=== PATIENT | male | born 1965 | race African-American/Black ===

== ENCOUNTER 2018-06-02 14:51 | Inpatient (IN) ==
--- NOTE | 2018-06-02 15:40 | ED ---
HPI General Chief complaint: Weakness Stated complaint: Medical Time Seen by Provider: 06/02/18 15:21 History of Present Illness HPI narrative: 53-year-old male with history of diabetes, hypertension, hyperlipidemia, colon cancer, and prostate cancer presents to the emergency department complaining of weakness and shortness of breath times 2 weeks. Patient denies hematuria or hemoptysis or chest pain reports shortness of breath. Also reports some constipation and weight loss. He denies taking aspirin or blood thinners or NSAIDs. States that his stool has been dark chronically secondary to vitamin D use. He is in remission for both colon cancer and prostate cancer. He completed 6 months of chemo for colon cancer June 2015 and 9 weeks radiation for prostate cancer in 2017. He also had colon surgery to remove part of his colon. He was seen [facility] the [facility] earlier today and blood work showed a hemoglobin of 6.6. Related Data Home Medications Medication Instructions Recorded Confirmed amlodipine 10 mg PO DAILY 06/02/18 06/02/18 atorvastatin 40 mg PO DAILY 06/02/18 06/02/18 cholecalciferol (vitamin D3) 06/02/18 insulin glargine 06/02/18 lisinopril 10 mg PO DAILY 06/02/18 06/02/18 metformin 06/02/18 pantoprazole 06/02/18 tamsulosin 0.4 mg PO DAILY 06/02/18 06/02/18 Allergies Allergy/AdvReac Type Severity Reaction Status Date / Time No Known Allergies Allergy Verified 06/02/18 15:18 Review of Systems ROS: all other systems reviewed are negative [facility] Social History Social History Substance History: No History of Abuse Second Hand Smoke Exposure: No Smoking Status: Never smoker Tobacco Type: Cigarettes How Often Do You Have a Drink Containing Alcohol: 2 to 3 times a week Recent Travel in [facility] within the Last 8 Weeks: No Recent Out of Country Travel within the Last 8 Weeks: No Immunization History Tetanus Immunization: <5 Years Exam Narrative Exam Narrative: GENERAL: No acute distress. SKIN: Focused skin assessment warm/dry. Pale. HEAD: Atraumatic. Normocephalic. EYES: Pupils equal and round. No scleral icterus. No injection or drainage. ENT: No nasal bleeding or discharge. Mucous membranes pink and moist. NECK: Trachea midline. No JVD. CARDIOVASCULAR: Regular rate and rhythm. No murmur appreciated. RESPIRATORY: No accessory muscle use. Clear to auscultation. Breath sounds equal bilaterally. GASTROINTESTINAL: Abdomen soft, non-tender, nondistended. Hepatic and splenic margins not palpable. Rectal: Brown stool, guaiac negative. MUSCULOSKELETAL: No obvious deformities. No clubbing. No cyanosis. No edema. NEUROLOGICAL: Awake and alert. No obvious cranial nerve deficits. Motor grossly within normal limits. Normal speech. PSYCHIATRIC: Appropriate mood and affect; insight and judgment normal. Course Initial Documented Vital Signs Temperature 99.2 F 06/02/18 15:15 Pulse Rate 98 H 06/02/18 15:15 Respiratory Rate 20 06/02/18 15:15 Blood Pressure 101/73 06/02/18 15:15 Pulse Oximetry 100 06/02/18 15:15 Last Documented Vital Signs Temperature 98.7 F 06/02/18 15:23 Pulse Rate 91 H 06/02/18 15:23 Respiratory Rate 18 06/02/18 15:23 Blood Pressure 123/69 06/02/18 15:23 Pulse Oximetry 100 06/02/18 15:23 Medical Decision Making [facility] Narrative Medical decision making narrative: Patient presents to the emergency department complaining of shortness of breath and weakness for 2 weeks. Was found to be anemic at the [facility] earlier today. Patient placed on classroom monitor, continuous pulse ox, and IV access obtained. Chest x-ray, EKG, labs ordered. 1608: CXR shows multiple nodules suggesting metastatic disease. 1638: Hgb 6.2, written to transfuse 2 units PRBCs, consent obtained. Call center called for hospitalist admission. GLc and alk phos increased. 1645: Patient admitted to hospitalist. Medical Screen Exam Complete: Yes Emergency Medical Condition: Yes Lab Data Result diagrams: 06/02/18 15:45 06/02/18 15:45 Lab Results 06/02/18 06/02/18 06/02/18 Range/Units 15:45 15:45 15:45 WBC 8.7 (4.0-11.0) th/mm3 RBC 2.59 L (4.50-5.90) mil/mm3 Hgb 6.2 L* (13.0-17.0) gm/dL Hct 19.5 L* (39.0-51.0) % MCV 75.3 L (80.0-100.0) fL MCH 23.9 L (27.0-34.0) pg MCHC 31.8 L (32.0-36.0) % RDW 17.8 H (11.6-17.2) % Plt Count 334 (150-450) th/mm3 MPV 7.4 (7.0-11.0) fL Prelim Diff (Auto) Slide review pending Neut % (Auto) 82.6 H (16.0-70.0) % Lymph % (Auto) 8.3 L (9.0-44.0) % [place] % (Auto) 8.1 H (0.0-8.0) % Eos % (Auto) 0.7 (0.0-4.0) % Baso % (Auto) 0.3 (0.0-2.0) % Neut # (Auto) 7.2 (1.8-7.7) th/mm3 Lymph # (Auto) 0.7 L (1.0-4.8) th/mm3 [place] # (Auto) 0.7 (0.0-0.9) th/mm3 Eos # (Auto) 0.1 (0.0-0.4) th/mm3 Baso # (Auto) 0.0 (0.0-0.2) th/mm3 WBC Differential . Diff Scan Auto diff confirmed Differential Comment . Platelet Estimate Normal (Normal) Platelet Morphology Normal (Normal) Tear Drop Cells 1+ H (None) Ovalocytes 1+ H (None) PT 11.2 (9.8-11.6) sec INR 1.1 Ratio APTT 25.9 (23.4-31.7) sec Sodium 135 L (136-145) meq/L Potassium 3.8 (3.5-5.1) meq/L Chloride 103 (98-107) meq/L Carbon Dioxide 23.5 (21.0-32.0) meq/L Anion Gap 9 (5-15) meq/L BUN 15 (7-18) mg/dL Creatinine 0.86 (0.60-1.30) mg/dL Estimated GFR Greater than 89 (>89) mL/min Random Glucose 181 H (74-106) mg/dL Calcium 8.9 (8.5-10.1) mg/dL Magnesium 2.1 (1.5-2.5) mg/dL Total Bilirubin 0.2 (0.2-1.0) mg/dL AST 21 (15-37) U/L ALT 19 (12-78) U/L Alkaline Phosphatase 177 H (45-117) U/L Troponin I Less than 0.02 L (0.02-0.05) ng/mL Total Protein 7.3 (6.4-8.2) g/dL Albumin 2.6 L (3.4-5.0) g/dL Blood Type Blood Type Recheck Antibody Screen 06/02/18 Range/Units 15:45 WBC (4.0-11.0) th/mm3 RBC (4.50-5.90) mil/mm3 Hgb (13.0-17.0) gm/dL Hct (39.0-51.0) % MCV (80.0-100.0) fL MCH (27.0-34.0) pg MCHC (32.0-36.0) % RDW (11.6-17.2) % Plt Count (150-450) th/mm3 MPV (7.0-11.0) fL Prelim Diff (Auto) Neut % (Auto) (16.0-70.0) % Lymph % (Auto) (9.0-44.0) % [place] % (Auto) (0.0-8.0) % Eos % (Auto) (0.0-4.0) % Baso % (Auto) (0.0-2.0) % Neut # (Auto) (1.8-7.7) th/mm3 Lymph # (Auto) (1.0-4.8) th/mm3 [place] # (Auto) (0.0-0.9) th/mm3 Eos # (Auto) (0.0-0.4) th/mm3 Baso # (Auto) (0.0-0.2) th/mm3 WBC Differential Diff Scan Differential Comment Platelet Estimate (Normal) Platelet Morphology (Normal) Tear Drop Cells (None) Ovalocytes (None) PT (9.8-11.6) sec INR Ratio APTT (23.4-31.7) sec Sodium (136-145) meq/L Potassium (3.5-5.1) meq/L Chloride (98-107) meq/L Carbon Dioxide (21.0-32.0) meq/L Anion Gap (5-15) meq/L BUN (7-18) mg/dL Creatinine (0.60-1.30) mg/dL Estimated GFR (>89) mL/min Random Glucose (74-106) mg/dL Calcium (8.5-10.1) mg/dL Magnesium (1.5-2.5) mg/dL Total Bilirubin (0.2-1.0) mg/dL AST (15-37) U/L ALT (12-78) U/L Alkaline Phosphatase (45-117) U/L Troponin I (0.02-0.05) ng/mL Total Protein (6.4-8.2) g/dL Albumin (3.4-5.0) g/dL Blood Type A Positive Blood Type Recheck Required Antibody Screen Negative Imaging Data Radiologist's impression: Chest X-Ray 06/02/18 15:35 CONCLUSION: Multiple pulmonary nodules suggesting widespread metastatic disease. ECG Data Attestation: I personally reviewed and interpreted this ECG as follows: (Sinus rhythm, rate 87, normal axis, normal intervals, QTC 436) Discharge Plan Discharge Disposition Patient Disposition: 30 Still Patient Discharge Condition Condition: Stable Discharge Details Diagnosis: Anemia Physicians Team ED Provider: Ritika Pulido Primary Care Provider: [facility]ician 's Attending Provider: Sara Meyer Status ED Status: Admitted Patient
[2018-06-02] MEDS ORDERED: Sodium Chlor 0.9% Inj 250 ML IV.SIG SCH (16:00)
--- NOTE | 2018-06-02 16:00 | XR ---
EXAM DATE: 06/02/2018 3:58 PM EST AGE/SEX: 53 years / Male INDICATIONS: Dyspnea. Short of breath with dizziness for two weeks. CLINICAL DATA: This is the patient's initial encounter. Patient reports that signs and symptoms have been present for 1 day and indicates a pain score of 2/10. MEDICAL/SURGICAL HISTORY: . Carcinoma, colon. Colon perforation. Internal bleed. . Colon. COMPARISON: No prior exams available for comparison. FINDINGS: Single view of the thorax demonstrates numerous pulmonary nodules suggesting widespread metastatic di sease. CT of the thorax abdomen and pelvis with contrast would be warranted for further assessment. T he heart is normal in size. The osseous structures are intact. CONCLUSION: Multiple pulmonary nodules suggesting widespread metastatic disease. Electronically signed by: Willy Mariano MD 06/02/2018 3:59 PM EST
[2018-06-02 16:19] LABS: Baso % (Auto) 0.3 % (0.0-2.0); Eos # (Auto) 0.1 th/mm3 (0.0-0.4); Eos % (Auto) 0.7 % (0.0-4.0); Lymph # (Auto) 0.7 th/mm3 (1.0-4.8); Lymph % (Auto) 8.3 % (9.0-44.0); Mean Corpuscular HGB Conc 31.8 % (32.0-36.0); Mean Corpuscular Hemoglobin 23.9 pg (27.0-34.0); Mean Corpuscular Volume 75.3 fL (80.0-100.0); Mean Platelet Volume 7.4 fL (7.0-11.0); Mono # (Auto) 0.7 th/mm3 (0.0-0.9); Mono % (Auto) 8.1 % (0.0-8.0); Neut # (Auto) 7.2 th/mm3 (1.8-7.7); Neut % (Auto) 82.6 % (16.0-70.0); Platelet Count 334 th/mm3 (150-450); Red Blood Count 2.59 mil/mm3 (4.50-5.90); Red Cell Distribution Width 17.8 % (11.6-17.2); White Blood Count 8.7 th/mm3 (4.0-11.0)
[2018-06-02 16:23] LABS: Hemoglobin 6.2 gm/dL (13.0-17.0)
[2018-06-02 16:24] LABS: Hematocrit 19.5 % (39.0-51.0)
[2018-06-02 16:27] LABS: Activated Partial Thrombo Time 25.9 sec (23.4-31.7); INR 1.1 Ratio; Prothrombin Time 11.2 sec (9.8-11.6)
[2018-06-02 16:35] LABS: Alanine Aminotransferase 19 U/L (12-78); Albumin 2.6 g/dL (3.4-5.0); Anion Gap 9 meq/L (5-15); Aspartate Aminotransferase 21 U/L (15-37); Blood Urea Nitrogen 15 mg/dL (7-18); Calcium 8.9 mg/dL (8.5-10.1); Carbon Dioxide 23.5 meq/L (21.0-32.0); Chloride 103 meq/L (98-107); Glomerular Filtration Rate Greater Than 89 mL/min (>89); Glucose,Random 181 mg/dL (74-106); Magnesium 2.1 mg/dL (1.5-2.5); Potassium 3.8 meq/L (3.5-5.1); Sodium 135 meq/L (136-145)
[2018-06-02 16:39] LABS: Alkaline Phosphatase 177 U/L (45-117); Total Protein 7.3 g/dL (6.4-8.2)
[2018-06-02] MEDS ORDERED: Acetaminophen 325 MG Tablet PO PRN (16:54)
[2018-06-02] MEDS ORDERED: Bisacodyl 10 MG Supp RECTAL PRN (16:54)
[2018-06-02] MEDS ORDERED: Diatrizoate Meglum/Diatrizoate Sod Liq 9 ML UDC PO ONE (16:57)
[2018-06-02] MEDS ORDERED: Dextrose 50% in Water 50 ML Vial IV.PUSH PRN (17:04)
[2018-06-02 17:06] LABS: Ovalocytes 1+
[2018-06-02 17:07] LABS: Platelet Estimate Normal (Normal); Platelet Morphology Normal (Normal); Tear Drop Cells 1+
--- NOTE | 2018-06-02 18:04 | P.HPIM ---
History of Present Illness Primary Care Physician: [facility] Chief Complaint: Shortness of breath and fatigue History of Present Illness: 53-year-old -[place] male with a previous history of colon cancer and prostate cancer presents to the emergency room with a 3-day history of increasing shortness of breath both at rest and with physical exertion along with generalized fatigue after his primary care physician from the [place] refer him due to abnormal low hemoglobin of 6.8. He reports that he usually has chronic dark stools being on vitamin D supplements. He has not seen bloody stools. He also reports for the past 3 weeks he has had increased satiety and has been only eating about 50% of his meals. He reports that he moved down from [place] recently and had [place]. In November, he had a colonoscopy that revealed a polyp in which was removed and sent for pathology that showed no malignancy. His colon cancer which was diagnosed in 2014 he underwent resection followed by chemotherapy. He was also diagnosed in 2017 with prostate cancer and underwent radiation. He has not had any previous lung issues. He also noted that he has had increased constipation over the past 3 weeks which is not associated with any nausea or vomiting. Inpatient Certification Inpatient Certification: I certify that the inpatient services were ordered in accordance with Medicare regulations governing the order. This includes certification that hospital inpatient services are reasonable and necessary and in the case of services not specified as inpatient-only under 42 CFR 419.22(n), that they are appropriately provided as inpatient services in accordance to with the 2-midnight benchmark under 43 CFR 412.3(e) Estimated Total Length of Stay (Days): 3 Plans for Post Hospital Care: Home Review of Systems Constitutional: Reports as per HPI, Denies chills, Reports fatigue, Denies headache(s), Reports malaise, Denies night sweats, Reports poor appetite and Reports weakness Eyes: Denies blurry vision, Denies change in vision and Denies eye pain Ears, Nose, Mouth, and Throat: Denies abnormal hearing, Denies headache(s), Denies mouth pain, Denies nasal congestion, Denies neck pain and Denies sore throat Cardiovascular: Denies chest pain, Denies pedal edema, Denies leg edema, Denies palpitations and Denies dyspnea Respiratory: Denies chest congestion, Denies cough, Reports dyspnea and Denies wheezing Gastrointestinal: Denies abdominal pain, Reports constipation, Denies dysphagia , Reports early satiety, Denies heartburn, Denies loose stools, Denies nausea and Denies vomiting Musculoskeletal: Denies back pain, Denies myalgias, Denies arthralgias, Denies neck pain and Denies numbness Skin/Breast: Denies new lesions and Denies rash Neurologic: Denies abnormal hearing, Denies headache(s), Denies focal weakness, Denies memory loss and Denies numbness Psychiatric: Denies anxiety, Denies depression and Denies memory loss Endocrine: Denies cold intolerance, Denies heat intolerance and Denies palpitations Hematologic/Lymphatic: Denies easy bleeding and Denies easy bruising [facility] Medical History Medical History Colon cancer (Chronic) Diabetes (Chronic) Hypertension (Chronic) Prostate cancer (Chronic) Surgical History Surgical History History of colectomy (Chronic) Family History Family History Father Amyloid heart disease Mother Diabetes mellitus Heart disease Social History Social History Substance History: No History of Abuse Second Hand Smoke Exposure: No Smoking Status: Never smoker Tobacco Type: Cigarettes How Often Do You Have a Drink Containing Alcohol: Monthly or less Recent Travel in [facility] within the Last 8 Weeks: No Recent Out of Country Travel within the Last 8 Weeks: No Immunization History Tetanus Immunization: <5 Years Medications and Allergies Allergies Allergy/AdvReac Type Severity Reaction Status Date / Time No Known Allergies Allergy Verified 06/02/18 15:18 Home Medications Medication Instructions Recorded Confirmed Type amlodipine 10 mg PO DAILY 06/02/18 06/02/18 History atorvastatin 40 mg PO DAILY 06/02/18 06/02/18 History cholecalciferol (vitamin D3) 06/02/18 History insulin glargine 32 units SUBCUT HS 06/02/18 06/02/18 History lisinopril 10 mg PO DAILY 06/02/18 06/02/18 History metformin 1,000 mg PO BID 06/02/18 06/02/18 History pantoprazole 40 mg PO DAILY 06/02/18 06/02/18 History tamsulosin 0.4 mg PO DAILY 06/02/18 06/02/18 History Active Medications: Active Medications Acetaminophen (Tylenol) 650 mg PO Q4H PRN PRN Reason: Temp > 100.4 Al Hydroxide/Mg Hydroxide (Milk Of Magnesia Liq) 30 ml PO Q12H PRN PRN Reason: Mild Constipation Bisacodyl (Dulcolax Supp) 10 mg RECTAL DAILY PRN PRN Reason: SEVERE CONSITIPATION Dextrose (D50w Vial) 50 ml IV.PUSH UNSCH PRN PRN Reason: PER HYPOGLYCEMIA PROTOCOL Glucagon (Glucagon Inj) 1 mg OTHER PRN PRN PRN Reason: for Hypoglycemia Protocol Sodium Chloride (Ns Inj) 250 mls @ 15 mls/hr IV.SIG ONCE NERI Stop: 06/03/18 08:39 Sodium Chloride (Ns Inj) 250 mls @ 15 mls/hr IV.SIG ONCE NERI Stop: 06/03/18 10:39 Insulin Aspart (Novolog Insulin Correctional Sugar Inj) 0 unit SQ ACHS NERI; Protocol Lactulose (Lactulose Liq) 30 ml PO DAILY PRN PRN Reason: SEVERE CONSITIPATION Ondansetron HCl (Zofran Inj) 4 mg IV.PUSH Q6H PRN PRN Reason: NAUSEA OR VOMITING Pantoprazole Sodium (Protonix Inj) 40 mg IV.PUSH BID NERI Sennosides (Senokot) 17.2 mg PO Q12H PRN PRN Reason: Moderate Constipation Sodium Chloride (Ns Flush) 2 ml IV.FLUSH BID NERI Sodium Chloride (Ns Flush) 2 ml IV.FLUSH PRN PRN PRN Reason: FLUSH AFTER USING IV ACCESS Physical Exam Vital signs: Last Vital Signs Temp 98.7 F 06/02/18 15:23 Pulse 91 H 06/02/18 15:23 Resp 18 06/02/18 15:23 BP 123/69 06/02/18 15:23 Pulse Ox 100 06/02/18 15:23 Intake & Output 05/31/18 06/01/18 06/02/18 06/03/18 06:59 06:59 06:59 06:59 Weight 99.79 kg Narrative: GENERAL: Well-nourished well-developed -[place] male in no acute distress SKIN: Warm and dry. HEAD: Atraumatic. Normocephalic. EYES: Pupils equal and round. No scleral icterus. No injection or drainage. ENT: No nasal bleeding or discharge. Mucous membranes pink and moist. NECK: Trachea midline. No JVD. CARDIOVASCULAR: Regular rate and rhythm. RESPIRATORY: No accessory muscle use. Clear to auscultation. Breath sounds equal bilaterally. GASTROINTESTINAL: Abdomen soft, non-tender, nondistended. Hepatic and splenic margins not palpable. Previous surgical scar noted MUSCULOSKELETAL: Extremities without clubbing, cyanosis, or edema. No obvious deformities. NEUROLOGICAL: Awake and alert to person place time situation. No obvious cranial nerve deficits. Motor grossly within normal limits. Five out of 5 muscle strength in the arms and legs. Normal speech. PSYCHIATRIC: Appropriate mood and affect; insight and judgment normal. Results Labs CBC & Chem 7: 06/03/18 05:32 06/03/18 05:32 Imaging Impressions Chest X-Ray 06/02/18 15:35 CONCLUSION: Multiple pulmonary nodules suggesting widespread metastatic disease. Caprini VTE Risk Assessment Caprini VTE Risk Assessment: Moderate/High Risk (score >= 2) VTE Pharmacological Exception Reason: Active bleeding Caprini Risk Assessment Model: Point Value = 1 Point Value = 2 Point Value = 3 Point Value = 5 Age 41-60 Minor surgery BMI > 25 kg/m2 Swollen legs Varicose veins or History of unexplained or recurrent spontaneous Oral contraceptives or hormone replacement Sepsis (< 1 month) Serious lung disease, including pneumonia (< 1 month) Abnormal pulmonary function Acute myocardial infarction Congestive heart failure (< 1 month) History of inflammatory bowel disease Medical patient at bed rest Age 61-74 Arthroscopic surgery Major open surgery (> 45 min) Laparoscopic surgery (> 45 min) Malignancy Confined to bed (> 72 hours) Immobilizing plaster cast Central venous access Age >= 75 History of VTE Family history of VTE Factor V Leiden Prothrombin [id number] Lupus anticoagulant Anticardiolipin antibodies Elevated serum homocysteine Heparin-induced thrombocytopenia Other congenital or acquired thrombophilia Stroke (< 1 month) Elective arthroplasty Hip, pelvis, or leg fracture Acute spinal cord injury (< 1 month) Prophylaxis Regimen: Total Risk Factor Score Risk Level Prophylaxis Regimen 0-1 Low Early ambulation 2 Moderate Order ONE of the following: *Sequential Compression Device (SCD) *Heparin 5000 units SQ BID 3-4 Higher Order ONE of the following medications: *Heparin 5000 units SQ TID *Enoxaparin/Lovenox 40 mg SQ daily (WT < 150 kg, CrCl > 30 mL/min) *Enoxaparin/Lovenox 30 mg SQ daily (WT < 150 kg, CrCl > 10-29 mL/min) *Enoxaparin/Lovenox 30 mg SQ BID (WT < 150 kg, CrCl > 30 mL/min) AND/OR *Sequential Compression Device (SCD) 5 or more Highest Order ONE of the following medications: *Heparin 5000 units SQ TID (Preferred with Epidurals) *Enoxaparin/Lovenox 40 mg SQ daily (WT < 150 kg, CrCl > 30 mL/min) *Enoxaparin/Lovenox 30 mg SQ daily (WT < 150 kg, CrCl > 10-29 mL/min) *Enoxaparin/Lovenox 30 mg SQ BID (WT < 150 kg, CrCl > 30 mL/min) AND *Sequential Compression Device (SCD) Assessment and Plan Plan 53-year-old male presents with 3-week history of progressive shortness of breath and fatigue Acute anemia, rule out underlying GI bleed - monitor serial hemoglobin and hematocrit. Transfuse 2 units of PRBC. start PPI. GI consultation to evaluate for further EGD colonoscopy. Patient does have a history of previous colon cancer, recent colostomy in November of this year showed polyps. Multiple pulmonary nodules with high suspicion for metastatic disease,-obtain CT chest with contrast, will also obtain a CT abdomen pelvis for further evaluation workup due to previous history of colon cancer. Obtain a oncology consult for further evaluation. Diabetes mellitus type 2, insulin-dependent -restart home Lantus with lower dose due to decreased PO intake and coverage with sliding scale insulin to continue glucose monitoring Hypertension, chronic essential resume home lisinopril with parameters. Hold amlodipine due to hypovolemia from anemia until active GI bleed is ruled out DVT prophylaxisanticoagulation on hold due to risk of GI bleed, hold until it is ruled out. Discussed Condition With: Patient and mother at bedside.
--- NOTE | 2018-06-02 20:36 | CT ---
EXAM DATE: 06/02/2018 8:13 PM EST AGE/SEX: 53 years / Male INDICATIONS: Blood in stool. Abnormal chest x-ray demonstrating multiple pulmonary metastatic lesion s. CLINICAL DATA: This is the patient's initial encounter. Patient reports that signs and symptoms have been present for 1 day and indicates a pain score of 0/10. MEDICAL/SURGICAL HISTORY: Carcinoma, colon. Diabetes. None. ORAL CONTRAST: Prescribed oral contrast ingested. RADIATION DOSE: 12.03 CTDI (mGy) ; Combined studies COMPARISON: No prior exams available for comparison. TECHNIQUE: Multiple contiguous axial images were obtained through the abdomen and pelvis following b olus infusion of 90 ml Omnipaque 350 (iohexol) nonionic water-soluble contrast as a single exam dos e. Prescribed oral contrast ingested. Using automated exposure control and adjustment of the mA and/ or kV according to patient size, radiation dose was kept as low as reasonably achievable to obtain op timal diagnostic quality images. DICOM format image data is available electronically for review and comparison. FINDINGS: Lower Lungs: There are multiple rounded metastatic lesions in both lung bases. The largest of these m easures up to approximately 1.6 cm. There is a small left pleural effusion. Liver: There are multiple low-attenuation metastatic lesions in both lobes of the liver. The largest in the left lobe measures up to approximately 4.8 cm. In the right lobe there are 2 adjacent contiguo us lesions measuring up to approximately 6.8 cm. There is no intrahepatic biliary ductal dilatation. Spleen: Homogeneous density without enlargement. Pancreas: There is a large ill-defined low density mass in the region of the head of the pancreas me asuring up to at least 5.1 x 3.8 cm in diameter. This appears to involve the posterior distal stomach and duodenum and there are multiple small ill-defined gas bubbles in this region. There is dilatatio n of the pancreatic duct measuring up to 6 to 7 mm. The tail the pancreas is atrophic in appearance. Kidneys: Normal in size and shape. No evidence of solid mass or hydronephrosis. There are bilateral simple appearing cysts. There are no renal calculi. Adrenal Glands: Unremarkable. Aorta: The aorta and proximal iliac vessels are grossly unremarkable without aneurysmal dilation. Bowel/Mesentery: Anastomotic mane are noted in the region of the transverse colon. There is no se parate free air. Pelvis is noted in the proximal portal vein and mesenteric veins seen best on axial images numbers 45 through 36. Abdominal Wall: Intact. Retroperitoneum: There are prominent retroperitoneal lymph nodes noted best seen on axial image #38 measuring up to approximately 1.8 cm. Bladder: Contours are smooth. Reproductive Organs: No abnormal masses or calcifications seen. Inguinal: The inguinal region is unremarkable without evidence of adenopathy. Bony Structures: Unremarkable. CONCLUSION: 1. Large ill-defined low-attenuation mass in the region of the head of the pancreas of concern for p ancreatic cancer. Appears to involve the posterior aspect of the distal stomach and there are multipl e ill-defined gas collections in this region most characteristic of necrotic tumor. 2. Low-density thrombus in the proximal portal vein and mesenteric veins. 3. Multiple hepatic metastasis. 4. Multiple lung metastasis. Electronically signed by: Esau Justice MD 06/02/2018 8:35 PM EST
--- NOTE | 2018-06-02 20:39 | CT ---
EXAM DATE: 06/02/2018 8:14 PM EST AGE/SEX: 53 years / Male INDICATIONS: Metastatic disease. CLINICAL DATA: This is the patient's initial encounter. Patient reports that signs and symptoms have been present for 1 day and indicates a pain score of 0/10. MEDICAL/SURGICAL HISTORY: Carcinoma, colon. Diabetes. None. RADIATION DOSE: 12.03 CTDI (mGy) COMPARISON: [facility] [place], CT ABDOMEN & PELVIS W CONTRAST, 06/02/2018. . TECHNIQUE: Multiple contiguous axial images were obtained through the chest during bolus infusion of 90 ml Omnipaque 350 (iohexol) nonionic water-soluble contrast as a single exam dose. Images were obtained in suspended respiration using multiple row detector helical technique. Using automated exp osure control and adjustment of the mA and/or kV according to patient size, radiation dose was kept a s low as reasonably achievable to obtain optimal diagnostic quality images. DICOM format image data is available electronically for review and comparison. FINDINGS: Lungs: There are numerous widespread metastatic lesions throughout both lungs. The largest of these measures up to approximately 2 cm. These number approximately 50. Mediastinum: There is good visualization of the great vessels of the middle mediastinum. No evidenc e of mediastinal or hilar adenopathy/mass. Pleurae: There is a small left pleural effusion. Axillae: Unremarkable. Bony Structures: Unremarkable. Miscellaneous: The examination was extended to include the upper abdomen, and multiple liver metasta sis are again visualized. CONCLUSION: 1. Multiple bilateral pulmonary metastasis. 2. Please see abdomen CT from this date for further details on the abdominal findings. Electronically signed by: Esau Justice MD 06/02/2018 8:38 PM EST
[2018-06-02] MEDS ORDERED: Insulin Detemir Inj 1,000 UNIT/10 ML Vial SQ SCH (21:00)
[2018-06-02] MEDS: Pantoprazole Inj 40 MG Vial IV.PUSH SCH (21:47)
[2018-06-02] MEDS: Insulin NovoLOG Aspart Correctional Sugar Inj SQ SCH (21:51)
[2018-06-02] MEDS: Sodium Chlor 0.9% Inj 250 ML IV.SIG SCH (22:00)
--- NOTE | 2018-06-02 22:07 | MB ---
cc: Socorro Gonsalves MD,Sara GONZALEZ DATE: 06/02/2018 REFERRING PHYSICIAN: Sara Meyer MD CHIEF COMPLAINT: Dr. Meyer requests a consultation for Mr. Pruett regarding significant anemia associated with liver and lung nodules. HISTORY OF PRESENT ILLNESS: Mr. Pruett is a 53-year-old man with a history of diabetes and hypertension. He was diagnosed with prostate cancer at the age of 49. He had definitive surgery with colon resection and adjuvant systemic chemotherapy for 6 months with what sounds like Xeloda and oxaliplatin. Two years later, he was diagnosed with localized prostate cancer. He underwent definitive radiation therapy. He moved to the [facility] to be near his mother. They are originally from [place]. He is noted to have increasing shortness of breath and fatigue over the last several weeks. His history is confirmed by mother at bedside. He also had some weight loss. No fevers, chills or night sweats. He has some constipation, which is new. He reports a previous colonoscopy just before coming down to [place] was negative. His oncologic evaluation was negative that shows no evidence of recurrent or metastatic disease. He does not know if his CEA was initially elevated. Because of the severe shortness of breath, he came in to the emergency room and was found to have severe anemia with hemoglobin of 6.2, microcytic in nature. His white cell count and his platelet count are normal. His PT, PTT is normal. His sodium is slightly decreased. AST and ALT are normal. Alkaline phosphatase is elevated. His glucose is 181. REVIEW OF SYSTEMS: Otherwise negative. He denies any other intercurrent illness. PAST MEDICAL HISTORY: Diabetes, hypertension, colon cancer, prostate cancer, microcytic anemia consistent with iron deficiency. PAST SURGICAL HISTORY: Colectomy, prostate biopsy. FAMILY HISTORY: Father had amyloid heart disease, in his late 80s. Mother has diabetes, heart disease, and colonic polyps. SOCIAL HISTORY: He is a never smoker. He drinks alcohol rarely. He denies any illicit drug use. ALLERGIES: NO KNOWN DRUG ALLERGIES. CURRENT MEDICATIONS: 1. Tylenol p.r.n. 2. Lipitor. 3. Dulcolax. 4. NovoLog. 5. Levemir. 6. Lactulose. 7. Prinivil. 8. Zofran. 9. Protonix. 10. Senokot. 11. Flomax. PHYSICAL EXAMINATION: VITAL SIGNS: Temperature 99.4, heart rate 116, respiratory rate 16, blood pressure 137/78, saturation 100%. GENERAL: Mr. Pruett is a well-developed, well-nourished man who looks his stated age. HEENT: His pupils are round and reactive to light and accommodation. Conjunctivae are pale. Oropharynx is clear. NECK: Supple. LUNGS: Clear to auscultation. CARDIOVASCULAR: Reveals tachycardia with a flow systolic murmur. GASTROINTESTINAL: Benign. No organomegaly. LOWER EXTREMITIES: No edema. NEUROLOGIC: Nonfocal. LABORATORY DATA: As described above. ASSESSMENT AND PLAN: Mr. Pruett is a 53-year-old man with a history of hypertension, diabetes, colon cancer and prostate cancer, who presents with significant microcytic anemia consistent with iron deficiency. We discussed a need for gastrointestinal evaluation to rule out a source of iron loss. Iron studies will be obtained. A CT scan of chest, abdomen and pelvis revealed bilateral pulmonary nodules, which look like metastatic disease. There are also liver lesions that look like metastatic disease. Interestingly, his last colonoscopy was negative for colonic lesion; however, he has new bowel problems, which is worsened constipation. Defer to gastrointestinal for endoscopic evaluation. He will likely need upper endoscopy and colonoscopy. I recommend a CT-guided biopsy of a liver lesion to rule out recurrent and metastatic colon cancer. Based on his history of cancer, I am also concerned that this might be a third primary. Further recommendation regarding the cancer depends on the pathology results. He is a and receives his care under the [facility]. He understands he will followup at [facility] to their Oncology program in [facility]. Mr. Pruett and his mother's questions were answered to their satisfaction. A transfusion of a unit of packed red cells was agreeable to the patient. MD JORDAN Briggs/vincenzo , 08:52 PM , 09:04 PM
[2018-06-03] MEDS: Sodium Chlor 0.9% Inj 250 ML IV.SIG SCH (05:27)
[2018-06-03 06:07] LABS: Baso % (Auto) 0.3 % (0.0-2.0); Eos # (Auto) 0.1 th/mm3 (0.0-0.4); Eos % (Auto) 0.6 % (0.0-4.0); Hematocrit 22.3 % (39.0-51.0); Hemoglobin 7.3 gm/dL (13.0-17.0); Lymph # (Auto) 0.6 th/mm3 (1.0-4.8); Mean Corpuscular HGB Conc 32.7 % (32.0-36.0); Mean Corpuscular Volume 76.6 fL (80.0-100.0); Mean Platelet Volume 7.3 fL (7.0-11.0); Mono # (Auto) 0.8 th/mm3 (0.0-0.9); Mono % (Auto) 9.1 % (0.0-8.0); Neut # (Auto) 7.7 th/mm3 (1.8-7.7); Platelet Count 304 th/mm3 (150-450); Red Blood Count 2.91 mil/mm3 (4.50-5.90); White Blood Count 9.3 th/mm3 (4.0-11.0)
[2018-06-03 06:44] LABS: Anion Gap 9 meq/L (5-15); Blood Urea Nitrogen 12 mg/dL (7-18); Calcium 8.4 mg/dL (8.5-10.1); Carbon Dioxide 23.4 meq/L (21.0-32.0); Chloride 106 meq/L (98-107); Glomerular Filtration Rate Greater Than 89 mL/min (>89); Glucose,Random 88 mg/dL (74-106); Iron 68 mcg/dL (65-175); Potassium 3.3 meq/L (3.5-5.1); Sodium 138 meq/L (136-145)
[2018-06-03 07:10] LABS: % Iron Saturation 37.4 % (20-50); Ferritin 50 ng/mL (26-388); Total Iron Binding Capacity 182 mcg/dL (250-450); Vitamin B12 691 pg/mL (193-986)
[2018-06-03] MEDS ORDERED: Lisinopril 10 MG Tablet PO SCH (09:00)
[2018-06-03] MEDS ORDERED: amLODIPine 10 MG Tablet PO SCH (09:00)
[2018-06-03] MEDS: Pantoprazole Inj 40 MG Vial IV.PUSH SCH (10:03)
[2018-06-03] MEDS: Insulin NovoLOG Aspart Correctional Sugar Inj SQ SCH ×3 (10:04→17:43)
--- NOTE | 2018-06-03 11:28 | ECG ---
Date Performed: 06/02/2018 Time Performed: 15:51:37 PTAGE: 53 years EKG: Sinus rhythm NORMAL ECG NO PREVIOUS TRACING DOCTOR: Pan Dalal Interpretating Date/Time 06/03/2018 11:27:44
--- NOTE | 2018-06-03 12:00 | P.CONGI ---
History of Present Illness Consult date: 06/03/18 Consult reason: Anemia with suspected GI bleed Chief complaint: symptomatic anemia History of Present Illness: This patient is a 53-year-old male with a past medical history significant for colon cancer, diabetes, hypertension and prostate cancer. Surgical history significant for colectomy in 2014. Patient presented to the emergency room at [facility] with report of 3-day history of increasing shortness of breath and fatigue. Upon arrival, hemoglobin 6.2 hematocrit 19.5. 06/03/2018 hemoglobin 7.3 hematocrit 22.3-post transfusion of 2 units of packed RBCs. Upon consultation, patient reports that he has had dizziness and shortness of breath with exertion for the last 2 weeks. Patient states his stools have been very dark brown for the last 2-3 years. States he is not sure if they have become darker over that period of time. Patient does endorse periods of constipation where he has a bowel movement every 2-3 days and takes MiraLAX as needed. MiraLAX at times not effective as patient states he will continue to have a bowel movement every 2-3 days. Patient denies any nausea vomiting or abdominal pain. Of note, patient states he was diagnosed in 2014 after undergoing colonoscopy. Patient then underwent a colectomy and received chemotherapy for 6 months. Patient also reports history of prostate cancer for which he was diagnosed in 2016 and underwent radiation treatment for 9 weeks. States last colonoscopy done in 2017, benign polyps were found per patient. Last EGD per patient done in 2014 with normal findings. Patient denies difficulty swallowing but does endorse occasional heartburn. States he was diagnosed with GERD and has been on pantoprazole 40 mg p.o. daily. Patient denies any use of alcohol or tobacco products and denies any known family history for gastrointestinal disorders. Patient denies use of any blood thinners or NSAIDs. Our service has been consulted to evaluate patient for anemia with suspected GI bleeding. <Carlita Dominguez - Last Filed: 06/03/18 11:46> Review of Systems All other systems reviewed negative except as stated in HPI <Carlita Dominguez - Last Filed: 06/03/18 11:46> PMFSH - History History Provided By: Patient - Medical History Medical History: Medical History (Last Updated 06/02/18 @ 17:55 by Sara Meyer MD) Colon cancer Diabetes Hypertension Prostate cancer - Surgical History Surgical History: Surgical History (Last Updated 06/02/18 @ 17:56 by Sara Meyer MD) History of colectomy - Family History Family History: Family History Father Amyloid heart disease Mother Diabetes mellitus Heart disease - Tobacco History Second Hand Smoke Exposure: No Tobacco Use In Past 30 Days: No Smoking Status: Never smoker Tobacco Type: Cigarettes - Alcohol History How Often Do You Have a Drink Containing Alcohol: Monthly or less - Substance Use History Substance History: No History of Abuse - Travel History Recent Travel in the [place] Within the Last 8 Weeks: No Recent Travel Out of the Country Within the Last 8 Weeks: No - Immunization History Tetanus Immunization: <5 Years Hx Influenza Vaccine This Season: Yes <Carlita Dominguez - Last Filed: 06/03/18 11:46> - Medical History Medical History: Medical History (Last Updated 06/02/18 @ 17:55 by Sara Meyer MD) Colon cancer Diabetes Hypertension Prostate cancer - Surgical History Surgical History: Surgical History (Last Updated 06/02/18 @ 17:56 by Sara Meyer MD) History of colectomy - Family History Family History: Family History Father Amyloid heart disease Mother Diabetes mellitus Heart disease <Naima Mckenzie - Last Filed: 06/03/18 12:47> Medications and Allergies Active Medications: Active Medications Acetaminophen (Tylenol) 650 mg PO Q4H PRN PRN Reason: Temp > 100.4 Al Hydroxide/Mg Hydroxide (Milk Of Magnesia Liq) 30 ml PO Q12H PRN PRN Reason: Mild Constipation Atorvastatin Calcium (Lipitor) 40 mg PO DAILY [facility] Last Admin: 06/03/18 10:03 Dose: 40 mg Bisacodyl (Dulcolax Supp) 10 mg RECTAL DAILY PRN PRN Reason: SEVERE CONSITIPATION Dextrose (D50w Vial) 50 ml IV.PUSH UNSCH PRN PRN Reason: PER HYPOGLYCEMIA PROTOCOL Glucagon (Glucagon Inj) 1 mg OTHER PRN PRN PRN Reason: for Hypoglycemia Protocol Insulin Aspart (Novolog Insulin Correctional Sugar Inj) 0 unit SQ [facility]; Protocol Last Admin: 06/03/18 11:40 Dose: Not Given Insulin Detemir (Levemir Inj) 15 unit SQ [facility] Last Admin: 06/02/18 21:50 Dose: 15 unit Lactulose (Lactulose Liq) 30 ml PO DAILY PRN PRN Reason: SEVERE CONSITIPATION Lisinopril (Prinivil) 10 mg PO DAILY [facility] Last Admin: 06/03/18 10:03 Dose: 10 mg Ondansetron HCl (Zofran Inj) 4 mg IV.PUSH Q6H PRN PRN Reason: NAUSEA OR VOMITING Pantoprazole Sodium (Protonix Inj) 40 mg IV.PUSH BID [facility] Last Admin: 06/03/18 10:03 Dose: 40 mg Sennosides (Senokot) 17.2 mg PO Q12H PRN PRN Reason: Moderate Constipation Sodium Chloride (Ns Flush) 2 ml IV.FLUSH BID [facility] Last Admin: 06/03/18 10:04 Dose: 2 ml Sodium Chloride (Ns Flush) 2 ml IV.FLUSH PRN PRN PRN Reason: FLUSH AFTER USING IV ACCESS Tamsulosin HCl (Flomax) 0.4 mg PO DAILY [facility] Last Admin: 06/03/18 10:03 Dose: 0.4 mg <Carlita Dominguez - Last Filed: 06/03/18 11:46> Active Medications: Active Medications Acetaminophen (Tylenol) 650 mg PO Q4H PRN PRN Reason: Temp > 100.4 Al Hydroxide/Mg Hydroxide (Milk Of Magnesia Liq) 30 ml PO Q12H PRN PRN Reason: Mild Constipation Atorvastatin Calcium (Lipitor) 40 mg PO DAILY [facility] Last Admin: 06/03/18 10:03 Dose: 40 mg Bisacodyl (Dulcolax Supp) 10 mg RECTAL DAILY PRN PRN Reason: SEVERE CONSITIPATION Dextrose (D50w Vial) 50 ml IV.PUSH UNSCH PRN PRN Reason: PER HYPOGLYCEMIA PROTOCOL Glucagon (Glucagon Inj) 1 mg OTHER PRN PRN PRN Reason: for Hypoglycemia Protocol Insulin Aspart (Novolog Insulin Correctional Sugar Inj) 0 unit SQ [facility]; Protocol Last Admin: 06/03/18 11:40 Dose: Not Given Insulin Detemir (Levemir Inj) 15 unit SQ HS [facility] Last Admin: 06/02/18 21:50 Dose: 15 unit Lactulose (Lactulose Liq) 30 ml PO DAILY PRN PRN Reason: SEVERE CONSITIPATION Lisinopril (Prinivil) 10 mg PO DAILY [facility] Last Admin: 06/03/18 10:03 Dose: 10 mg Ondansetron HCl (Zofran Inj) 4 mg IV.PUSH Q6H PRN PRN Reason: NAUSEA OR VOMITING Pantoprazole Sodium (Protonix Inj) 40 mg IV.PUSH BID [facility] Last Admin: 06/03/18 10:03 Dose: 40 mg Sennosides (Senokot) 17.2 mg PO Q12H PRN PRN Reason: Moderate Constipation Sodium Chloride (Ns Flush) 2 ml IV.FLUSH BID [facility] Last Admin: 06/03/18 10:04 Dose: 2 ml Sodium Chloride (Ns Flush) 2 ml IV.FLUSH PRN PRN PRN Reason: FLUSH AFTER USING IV ACCESS Tamsulosin HCl (Flomax) 0.4 mg PO DAILY [facility] Last Admin: 06/03/18 10:03 Dose: 0.4 mg <Naima Mckenzie A - Last Filed: 06/03/18 12:47> Allergies Allergy/AdvReac Type Severity Reaction Status Date / Time No Known Allergies Allergy Verified 06/02/18 15:18 Home Medications Medication Instructions Recorded Confirmed Type amlodipine 10 mg PO DAILY 06/02/18 06/02/18 History atorvastatin 40 mg PO DAILY 06/02/18 06/02/18 History cholecalciferol (vitamin D3) 06/02/18 History insulin glargine 32 units SUBCUT HS 06/02/18 06/02/18 History lisinopril 10 mg PO DAILY 06/02/18 06/02/18 History metformin 1,000 mg PO BID 06/02/18 06/02/18 History pantoprazole 40 mg PO DAILY 06/02/18 06/02/18 History tamsulosin 0.4 mg PO DAILY 06/02/18 06/02/18 History Exam Vital signs: Vital Signs 06/02/18 15:15 06/02/18 15:23 06/02/18 18:25 Temperature 99.2 F 98.7 F 99.4 F Pulse Rate 98 H 91 H 116 H Respiratory Rate 20 18 16 Blood Pressure 101/73 123/69 137/78 Pulse Oximetry 100 100 100 06/02/18 21:59 06/02/18 22:24 06/02/18 22:46 Temperature 99.9 F H 99.9 F H 98.4 F Pulse Rate 98 H 97 H 92 H Respiratory Rate 16 16 16 Blood Pressure 114/66 123/76 119/72 Pulse Oximetry 99 98 97 06/02/18 23:53 06/03/18 00:49 06/03/18 01:21 Temperature 99.8 F H 98.7 F Pulse Rate 89 87 90 Respiratory Rate 16 16 Blood Pressure 112/65 109/66 Pulse Oximetry 99 97 06/03/18 01:29 06/03/18 01:45 06/03/18 03:46 Temperature 98.7 F 99.0 F Pulse Rate 88 94 H 85 Respiratory Rate 16 16 Blood Pressure 109/66 107/67 Pulse Oximetry 98 99 06/03/18 04:24 06/03/18 08:00 Temperature 99.1 F 99.2 F Pulse Rate 95 H 91 H Respiratory Rate 16 Blood Pressure 110/56 L 118/67 Pulse Oximetry 98 96 Intake & Output 06/02/18 06/03/18 06/03/18 18:59 06:59 18:59 Intake Total 1055 / 1055 Output Total 300 / 300 Balance 755 / 755 Weight 99.79 kg Intake: IV NS Inj 250 ML @ 15 mls/hr IV. SIG ONCE NERI Rx#:[id number] Oral 240 / 240 Intake (Blood Product) Amt 800 / 800 Rbc As-3 Leukoreduced Unit 400 / 400 [id number] Rbc As-3 Leukoreduced Unit 400 / 400 [id number] Output: Urine 300 / 300 Other: Date of Last Bowel Movement 06/02/18 # Bowel Movements 0 - Constitutional no acute distress - Routine HEENT Exam Head: Present: normocephalic - Routine Respiratory Exam Present: CTA bilaterally. Absent: accessory muscle use - Routine Cardiovascular Exam Present: RRR - Routine Abdominal Exam Present: soft, normoactive bowel sounds. Absent: tenderness, distended, guarding, firm - Routine Extremities Exam Absent: edema - Routine Skin Exam Present: dry, pallor, warm - Routine Psychiatric Exam Present: normal affect, cooperative <Dominguez,Carlita - Last Filed: 06/03/18 11:46> Vital signs: Vital Signs 06/02/18 15:15 06/02/18 15:23 06/02/18 18:25 Temperature 99.2 F 98.7 F 99.4 F Pulse Rate 98 H 91 H 116 H Respiratory Rate 20 18 16 Blood Pressure 101/73 123/69 137/78 Pulse Oximetry 100 100 100 06/02/18 21:59 06/02/18 22:24 06/02/18 22:46 Temperature 99.9 F H 99.9 F H 98.4 F Pulse Rate 98 H 97 H 92 H Respiratory Rate 16 16 16 Blood Pressure 114/66 123/76 119/72 Pulse Oximetry 99 98 97 06/02/18 23:53 06/03/18 00:49 06/03/18 01:21 Temperature 99.8 F H 98.7 F Pulse Rate 89 87 90 Respiratory Rate 16 16 Blood Pressure 112/65 109/66 Pulse Oximetry 99 97 06/03/18 01:29 06/03/18 01:45 06/03/18 03:46 Temperature 98.7 F 99.0 F Pulse Rate 88 94 H 85 Respiratory Rate 16 16 Blood Pressure 109/66 107/67 Pulse Oximetry 98 99 06/03/18 04:24 06/03/18 08:00 Temperature 99.1 F 99.2 F Pulse Rate 95 H 91 H Respiratory Rate 16 Blood Pressure 110/56 L 118/67 Pulse Oximetry 98 96 Intake & Output 06/02/18 06/03/18 06/03/18 18:59 06:59 18:59 Intake Total 1055 / 1055 Output Total 300 / 300 Balance 755 / 755 Weight 99.79 kg Intake: IV 15 NS Inj 250 ML @ 15 mls/hr IV. 15 SIG ONCE NERI Rx#:[id number] Oral 240 / 240 Intake (Blood Product) Amt 800 / 800 Rbc As-3 Leukoreduced Unit 400 / 400 [id number] Rbc As-3 Leukoreduced Unit 400 / 400 [id number] Output: Urine 300 / 300 Other: Date of Last Bowel Movement 06/02/18 # Bowel Movements 0 <Naima Mckenzie - Last Filed: 06/03/18 12:47> Results - Labs CBC & Chem 7: 06/03/18 05:32 06/03/18 05:32 Labs: Laboratory Results - last 24 hr 06/02/18 06/02/18 06/02/18 15:45 15:45 15:45 WBC 8.7 RBC 2.59 L Hgb 6.2 L* Hct 19.5 L* MCV 75.3 L MCH 23.9 L MCHC 31.8 L RDW 17.8 H Plt Count 334 MPV 7.4 Prelim Diff (Auto) Slide review pending Neut % (Auto) 82.6 H Lymph % (Auto) 8.3 L Wheeler % (Auto) 8.1 H Eos % (Auto) 0.7 Baso % (Auto) 0.3 Neut # (Auto) 7.2 Lymph # (Auto) 0.7 L Wheeler # (Auto) 0.7 Eos # (Auto) 0.1 Baso # (Auto) 0.0 WBC Differential . Diff Scan Auto diff confirmed Differential Comment . Platelet Estimate Normal Platelet Morphology Normal Tear Drop Cells 1+ H Ovalocytes 1+ H PT 11.2 INR 1.1 APTT 25.9 Sodium 135 L Potassium 3.8 Chloride 103 Carbon Dioxide 23.5 Anion Gap 9 BUN 15 Creatinine 0.86 Estimated GFR Greater than 89 POC Glucose Random Glucose 181 H Calcium 8.9 Magnesium 2.1 Iron TIBC % Saturation Ferritin Total Bilirubin 0.2 AST 21 ALT 19 Alkaline Phosphatase 177 H Troponin I Less than 0.02 L Total Protein 7.3 Albumin 2.6 L Carcinoembryonic Ag Vitamin B12 Blood Type Blood Type Recheck Antibody Screen MTS Gel Crossmatch Bld Prod Order Comment 06/02/18 06/02/18 06/02/18 15:45 15:45 21:26 WBC RBC Hgb Hct MCV MCH MCHC RDW Plt Count MPV Prelim Diff (Auto) Neut % (Auto) Lymph % (Auto) Wheeler % (Auto) Eos % (Auto) Baso % (Auto) Neut # (Auto) Lymph # (Auto) Wheeler # (Auto) Eos # (Auto) Baso # (Auto) WBC Differential Diff Scan Differential Comment Platelet Estimate Platelet Morphology Tear Drop Cells Ovalocytes PT INR APTT Sodium Potassium Chloride Carbon Dioxide Anion Gap BUN Creatinine Estimated GFR POC Glucose 232 H Random Glucose Calcium Magnesium Iron TIBC % Saturation Ferritin Total Bilirubin AST ALT Alkaline Phosphatase Troponin I Total Protein Albumin Carcinoembryonic Ag Vitamin B12 Blood Type A Positive Blood Type Recheck Required Antibody Screen Negative MTS Gel Crossmatch See Detail Bld Prod Order Comment 06/03/18 06/03/18 06/03/18 05:32 05:32 05:32 WBC 9.3 RBC 2.91 L Hgb 7.3 L Hct 22.3 L MCV 76.6 L MCH 25.0 L MCHC 32.7 RDW 18.0 H Plt Count 304 MPV 7.3 Prelim Diff (Auto) Neut % (Auto) 83.0 H Lymph % (Auto) 7.0 L Wheeler % (Auto) 9.1 H Eos % (Auto) 0.6 Baso % (Auto) 0.3 Neut # (Auto) 7.7 Lymph # (Auto) 0.6 L Wheeler # (Auto) 0.8 Eos # (Auto) 0.1 Baso # (Auto) 0.0 WBC Differential . Diff Scan Differential Comment Auto diff final Platelet Estimate Platelet Morphology Tear Drop Cells Ovalocytes PT INR APTT Sodium 138 Potassium 3.3 L Chloride 106 Carbon Dioxide 23.4 Anion Gap 9 BUN 12 Creatinine 0.76 Estimated GFR Greater than 89 POC Glucose Random Glucose 88 Calcium 8.4 L Magnesium Iron 68 TIBC 182 L % Saturation 37.4 Ferritin 50 Total Bilirubin AST ALT Alkaline Phosphatase Troponin I Total Protein Albumin Carcinoembryonic Ag 11.4 H Vitamin B12 691 Blood Type Blood Type Recheck Antibody Screen MTS Gel Crossmatch Bld Prod Order Comment 06/03/18 06/03/18 07:47 11:26 WBC RBC Hgb Hct MCV MCH MCHC RDW Plt Count MPV Prelim Diff (Auto) Neut % (Auto) Lymph % (Auto) Wheeler % (Auto) Eos % (Auto) Baso % (Auto) Neut # (Auto) Lymph # (Auto) Wheeler # (Auto) Eos # (Auto) Baso # (Auto) WBC Differential Diff Scan Differential Comment Platelet Estimate Platelet Morphology Tear Drop Cells Ovalocytes PT INR APTT Sodium Potassium Chloride Carbon Dioxide Anion Gap BUN Creatinine Estimated GFR POC Glucose 93 98 Random Glucose Calcium Magnesium Iron TIBC % Saturation Ferritin Total Bilirubin AST ALT Alkaline Phosphatase Troponin I Total Protein Albumin Carcinoembryonic Ag Vitamin B12 Blood Type Blood Type Recheck Antibody Screen MTS Gel Crossmatch Bld Prod Order Comment - Imaging Impressions Abdomen/Pelvis CT 06/02/18 00:00 CONCLUSION: 1. Large ill-defined low-attenuation mass in the region of the head of the pancreas of concern for pancreatic cancer. Appears to involve the posterior aspect of the distal stomach and there are multiple ill-defined gas collections in this region most characteristic of necrotic tumor. 2. Low-density thrombus in the proximal portal vein and mesenteric veins. 3. Multiple hepatic metastasis. 4. Multiple lung metastasis. Chest CT 06/02/18 00:00 CONCLUSION: 1. Multiple bilateral pulmonary metastasis. 2. Please see abdomen CT from this date for further details on the abdominal findings. Chest X-Ray 06/02/18 15:35 CONCLUSION: Multiple pulmonary nodules suggesting widespread metastatic disease. <Carlita Dominguez - Last Filed: 06/03/18 11:46> - Labs CBC & Chem 7: 06/03/18 05:32 06/03/18 05:32 Labs: Laboratory Results - last 24 hr 06/02/18 06/02/18 06/02/18 15:45 15:45 15:45 WBC 8.7 RBC 2.59 L Hgb 6.2 L* Hct 19.5 L* MCV 75.3 L MCH 23.9 L MCHC 31.8 L RDW 17.8 H Plt Count 334 MPV 7.4 Prelim Diff (Auto) Slide review pending Neut % (Auto) 82.6 H Lymph % (Auto) 8.3 L Wheeler % (Auto) 8.1 H Eos % (Auto) 0.7 Baso % (Auto) 0.3 Neut # (Auto) 7.2 Lymph # (Auto) 0.7 L Wheeler # (Auto) 0.7 Eos # (Auto) 0.1 Baso # (Auto) 0.0 WBC Differential . Diff Scan Auto diff confirmed Differential Comment . Platelet Estimate Normal Platelet Morphology Normal Tear Drop Cells 1+ H Ovalocytes 1+ H PT 11.2 INR 1.1 APTT 25.9 Sodium 135 L Potassium 3.8 Chloride 103 Carbon Dioxide 23.5 Anion Gap 9 BUN 15 Creatinine 0.86 Estimated GFR Greater than 89 POC Glucose Random Glucose 181 H Calcium 8.9 Magnesium 2.1 Iron TIBC % Saturation Ferritin Total Bilirubin 0.2 AST 21 ALT 19 Alkaline Phosphatase 177 H Troponin I Less than 0.02 L Total Protein 7.3 Albumin 2.6 L Carcinoembryonic Ag Vitamin B12 Blood Type Blood Type Recheck Antibody Screen MTS Gel Crossmatch Bld Prod Order Comment 06/02/18 06/02/18 06/02/18 15:45 15:45 21:26 WBC RBC Hgb Hct MCV MCH MCHC RDW Plt Count MPV Prelim Diff (Auto) Neut % (Auto) Lymph % (Auto) Wheeler % (Auto) Eos % (Auto) Baso % (Auto) Neut # (Auto) Lymph # (Auto) Wheeler # (Auto) Eos # (Auto) Baso # (Auto) WBC Differential Diff Scan Differential Comment Platelet Estimate Platelet Morphology Tear Drop Cells Ovalocytes PT INR APTT Sodium Potassium Chloride Carbon Dioxide Anion Gap BUN Creatinine Estimated GFR POC Glucose 232 H Random Glucose Calcium Magnesium Iron TIBC % Saturation Ferritin Total Bilirubin AST ALT Alkaline Phosphatase Troponin I Total Protein Albumin Carcinoembryonic Ag Vitamin B12 Blood Type A Positive Blood Type Recheck Required Antibody Screen Negative MTS Gel Crossmatch See Detail Bld Prod Order Comment 06/03/18 06/03/18 06/03/18 05:32 05:32 05:32 WBC 9.3 RBC 2.91 L Hgb 7.3 L Hct 22.3 L MCV 76.6 L MCH 25.0 L MCHC 32.7 RDW 18.0 H Plt Count 304 MPV 7.3 Prelim Diff (Auto) Neut % (Auto) 83.0 H Lymph % (Auto) 7.0 L Wheeler % (Auto) 9.1 H Eos % (Auto) 0.6 Baso % (Auto) 0.3 Neut # (Auto) 7.7 Lymph # (Auto) 0.6 L Wheeler # (Auto) 0.8 Eos # (Auto) 0.1 Baso # (Auto) 0.0 WBC Differential . Diff Scan Differential Comment Auto diff final Platelet Estimate Platelet Morphology Tear Drop Cells Ovalocytes PT INR APTT Sodium 138 Potassium 3.3 L Chloride 106 Carbon Dioxide 23.4 Anion Gap 9 BUN 12 Creatinine 0.76 Estimated GFR Greater than 89 POC Glucose Random Glucose 88 Calcium 8.4 L Magnesium Iron 68 TIBC 182 L % Saturation 37.4 Ferritin 50 Total Bilirubin AST ALT Alkaline Phosphatase Troponin I Total Protein Albumin Carcinoembryonic Ag 11.4 H Vitamin B12 691 Blood Type Blood Type Recheck Antibody Screen MTS Gel Crossmatch Bld Prod Order Comment 06/03/18 06/03/18 07:47 11:26 WBC RBC Hgb Hct MCV MCH MCHC RDW Plt Count MPV Prelim Diff (Auto) Neut % (Auto) Lymph % (Auto) Wheeler % (Auto) Eos % (Auto) Baso % (Auto) Neut # (Auto) Lymph # (Auto) Wheeler # (Auto) Eos # (Auto) Baso # (Auto) WBC Differential Diff Scan Differential Comment Platelet Estimate Platelet Morphology Tear Drop Cells Ovalocytes PT INR APTT Sodium Potassium Chloride Carbon Dioxide Anion Gap BUN Creatinine Estimated GFR POC Glucose 93 98 Random Glucose Calcium Magnesium Iron TIBC % Saturation Ferritin Total Bilirubin AST ALT Alkaline Phosphatase Troponin I Total Protein Albumin Carcinoembryonic Ag Vitamin B12 Blood Type Blood Type Recheck Antibody Screen MTS Gel Crossmatch Bld Prod Order Comment - Imaging Impressions Abdomen/Pelvis CT 06/02/18 00:00 CONCLUSION: 1. Large ill-defined low-attenuation mass in the region of the head of the pancreas of concern for pancreatic cancer. Appears to involve the posterior aspect of the distal stomach and there are multiple ill-defined gas collections in this region most characteristic of necrotic tumor. 2. Low-density thrombus in the proximal portal vein and mesenteric veins. 3. Multiple hepatic metastasis. 4. Multiple lung metastasis. Chest CT 06/02/18 00:00 CONCLUSION: 1. Multiple bilateral pulmonary metastasis. 2. Please see abdomen CT from this date for further details on the abdominal findings. Chest X-Ray 06/02/18 15:35 CONCLUSION: Multiple pulmonary nodules suggesting widespread metastatic disease. <Naima Mckenzie - Last Filed: 06/03/18 12:47> Assessment and Plan (1) Anemia Status: Acute Code(s): D64.9 - Anemia, unspecified - Plan This patient is a 53-year-old male with a past medical history significant for colon cancer, diabetes, hypertension and prostate cancer. Surgical history significant for colectomy in 2014. Patient presented to the emergency room at [facility] with report of 3-day history of increasing shortness of breath and fatigue. Upon arrival, hemoglobin 6.2 hematocrit 19.5. 06/03/2018 hemoglobin 7.3 hematocrit 22.3-post transfusion of 2 units of packed RBCs. Upon consultation, patient reports that he has had dizziness and shortness of breath with exertion for the last 2 weeks. Patient states his stools have been very dark brown for the last 2-3 years. States he is not sure if they have become darker over that period of time. Patient does endorse periods of constipation where he has a bowel movement every 2-3 days and takes MiraLAX as needed. MiraLAX at times not effective as patient states he will continue to have a bowel movement every 2-3 days. Patient denies any nausea vomiting or abdominal pain. Of note, patient states he was diagnosed in 2014 after undergoing colonoscopy. Patient then underwent a colectomy and received chemotherapy for 6 months. Patient also reports history of prostate cancer for which he was diagnosed in 2017 and underwent radiation treatment for 9 weeks. States last colonoscopy done in 2017, benign polyps were found per patient. Last EGD per patient done in 2014 with normal findings. Patient denies difficulty swallowing but does endorse occasional heartburn. States he was diagnosed with GERD and has been on pantoprazole 40 mg p.o. daily. Patient denies any use of alcohol or tobacco products and denies any known family history for gastrointestinal disorders. Patient denies use of any blood thinners or NSAIDs. Our service has been consulted to evaluate patient for anemia with suspected GI bleeding. Anemia with suspected GI bleeding Patient presented with report of 3-day history of increasing shortness of breath and fatigue. Upon arrival, hemoglobin 6.2 hematocrit 19.5. Post-transfusion hemoglobin 7.3 hematocrit 22.3. Diagnosed with colon cancer in 2014-underwent colectomy with chemotherapy times 6 months. Diagnosed with GERD and presently takes pantoprazole 40 mg p.o. daily Plan -N.p.o. -Obtain consent for EGD -EGD planned for today -Monitor for bleeding -Monitor hemoglobin and hematocrit -Transfuse as needed -Continue pantoprazole 40 mg IV twice daily -Antiemetics as ordered -Supportive care -Further recommendations to follow This patient has been seen by myself and Dr. Mckenzie and this note is written on his behalf - Attending Attestation Dr. Mckenzie <Carlita Dominguez - Last Filed: 06/03/18 11:46> (1) Anemia Status: Acute Code(s): D64.9 - Anemia, unspecified - Attending Attestation Agree with above assessment and plan. Will proceed with EGD today. Further recommendations to follow. Thank you for the consult. <Naima Mckenzie - Last Filed: 06/03/18 12:47> <Carlita Dominguez - Last Filed: 06/03/18 11:46> (1) Anemia Qualifiers: Anemia type: unspecified type Qualified Code(s): D64.9 - Anemia, unspecified <Naima Mckenzie - Last Filed: 06/03/18 12:47> (1) Anemia Qualifiers: Anemia type: unspecified type Qualified Code(s): D64.9 - Anemia, unspecified
--- NOTE | 2018-06-03 13:20 | P.PNONC ---
Subjective Interval history: Feeling better. Tolerated transfusion. Mother at bedside. Discussed CEA is elevated Objective Vital Signs/Intake & Output: Vital Signs 06/02/18 15:15 06/02/18 15:23 06/02/18 18:25 Temperature 99.2 F 98.7 F 99.4 F Pulse Rate 98 H 91 H 116 H Respiratory Rate 20 18 16 Blood Pressure 101/73 123/69 137/78 Pulse Oximetry 100 100 100 06/02/18 21:59 06/02/18 22:24 06/02/18 22:46 Temperature 99.9 F H 99.9 F H 98.4 F Pulse Rate 98 H 97 H 92 H Respiratory Rate 16 16 16 Blood Pressure 114/66 123/76 119/72 Pulse Oximetry 99 98 97 06/02/18 23:53 06/03/18 00:49 06/03/18 01:21 Temperature 99.8 F H 98.7 F Pulse Rate 89 87 90 Respiratory Rate 16 16 Blood Pressure 112/65 109/66 Pulse Oximetry 99 97 06/03/18 01:29 06/03/18 01:45 06/03/18 03:46 Temperature 98.7 F 99.0 F Pulse Rate 88 94 H 85 Respiratory Rate 16 16 Blood Pressure 109/66 107/67 Pulse Oximetry 98 99 06/03/18 04:24 06/03/18 08:00 Temperature 99.1 F 99.2 F Pulse Rate 95 H 91 H Respiratory Rate 16 Blood Pressure 110/56 L 118/67 Pulse Oximetry 98 96 Intake & Output 06/02/18 06/03/18 06/03/18 18:59 06:59 18:59 Intake Total 1055 / 1055 Output Total 300 / 300 Balance 755 / 755 Weight 99.79 kg Intake: IV NS Inj 250 ML @ 15 mls/hr IV. SIG ONCE NERI Rx#:[id number] Oral 240 / 240 Intake (Blood Product) Amt 800 / 800 Rbc As-3 Leukoreduced Unit 400 / 400 [id number] Rbc As-3 Leukoreduced Unit 400 / 400 [id number] Output: Urine 300 / 300 Other: Date of Last Bowel Movement 06/02/18 # Bowel Movements 0 Result Diagrams: 06/03/18 05:32 06/03/18 05:32 Laboratory Results: Laboratory Results - last 24 hr 06/02/18 06/02/18 06/02/18 15:45 15:45 15:45 WBC 8.7 RBC 2.59 L Hgb 6.2 L* Hct 19.5 L* MCV 75.3 L MCH 23.9 L MCHC 31.8 L RDW 17.8 H Plt Count 334 MPV 7.4 Prelim Diff (Auto) Slide review pending Neut % (Auto) 82.6 H Lymph % (Auto) 8.3 L [place] % (Auto) 8.1 H Eos % (Auto) 0.7 Baso % (Auto) 0.3 Neut # (Auto) 7.2 Lymph # (Auto) 0.7 L [place] # (Auto) 0.7 Eos # (Auto) 0.1 Baso # (Auto) 0.0 WBC Differential . Diff Scan Auto diff confirmed Differential Comment . Platelet Estimate Normal Platelet Morphology Normal Tear Drop Cells 1+ H Ovalocytes 1+ H PT 11.2 INR 1.1 APTT 25.9 Sodium 135 L Potassium 3.8 Chloride 103 Carbon Dioxide 23.5 Anion Gap 9 BUN 15 Creatinine 0.86 Estimated GFR Greater than 89 POC Glucose Random Glucose 181 H Calcium 8.9 Magnesium 2.1 Iron TIBC % Saturation Ferritin Total Bilirubin 0.2 AST 21 ALT 19 Alkaline Phosphatase 177 H Troponin I Less than 0.02 L Total Protein 7.3 Albumin 2.6 L Carcinoembryonic Ag Vitamin B12 Blood Type Blood Type Recheck Antibody Screen MTS Gel Crossmatch Bld Prod Order Comment 06/02/18 06/02/18 06/02/18 15:45 15:45 21:26 WBC RBC Hgb Hct MCV MCH MCHC RDW Plt Count MPV Prelim Diff (Auto) Neut % (Auto) Lymph % (Auto) [place] % (Auto) Eos % (Auto) Baso % (Auto) Neut # (Auto) Lymph # (Auto) [place] # (Auto) Eos # (Auto) Baso # (Auto) WBC Differential Diff Scan Differential Comment Platelet Estimate Platelet Morphology Tear Drop Cells Ovalocytes PT INR APTT Sodium Potassium Chloride Carbon Dioxide Anion Gap BUN Creatinine Estimated GFR POC Glucose 232 H Random Glucose Calcium Magnesium Iron TIBC % Saturation Ferritin Total Bilirubin AST ALT Alkaline Phosphatase Troponin I Total Protein Albumin Carcinoembryonic Ag Vitamin B12 Blood Type A Positive Blood Type Recheck Required Antibody Screen Negative MTS Gel Crossmatch See Detail Bld Prod Order Comment 06/03/18 06/03/18 06/03/18 05:32 05:32 05:32 WBC 9.3 RBC 2.91 L Hgb 7.3 L Hct 22.3 L MCV 76.6 L MCH 25.0 L MCHC 32.7 RDW 18.0 H Plt Count 304 MPV 7.3 Prelim Diff (Auto) Neut % (Auto) 83.0 H Lymph % (Auto) 7.0 L [place] % (Auto) 9.1 H Eos % (Auto) 0.6 Baso % (Auto) 0.3 Neut # (Auto) 7.7 Lymph # (Auto) 0.6 L [place] # (Auto) 0.8 Eos # (Auto) 0.1 Baso # (Auto) 0.0 WBC Differential . Diff Scan Differential Comment Auto diff final Platelet Estimate Platelet Morphology Tear Drop Cells Ovalocytes PT INR APTT Sodium 138 Potassium 3.3 L Chloride 106 Carbon Dioxide 23.4 Anion Gap 9 BUN 12 Creatinine 0.76 Estimated GFR Greater than 89 POC Glucose Random Glucose 88 Calcium 8.4 L Magnesium Iron 68 TIBC 182 L % Saturation 37.4 Ferritin 50 Total Bilirubin AST ALT Alkaline Phosphatase Troponin I Total Protein Albumin Carcinoembryonic Ag 11.4 H Vitamin B12 691 Blood Type Blood Type Recheck Antibody Screen MTS Gel Crossmatch Bld Prod Order Comment 06/03/18 06/03/18 07:47 11:26 WBC RBC Hgb Hct MCV MCH MCHC RDW Plt Count MPV Prelim Diff (Auto) Neut % (Auto) Lymph % (Auto) [place] % (Auto) Eos % (Auto) Baso % (Auto) Neut # (Auto) Lymph # (Auto) [place] # (Auto) Eos # (Auto) Baso # (Auto) WBC Differential Diff Scan Differential Comment Platelet Estimate Platelet Morphology Tear Drop Cells Ovalocytes PT INR APTT Sodium Potassium Chloride Carbon Dioxide Anion Gap BUN Creatinine Estimated GFR POC Glucose 93 98 Random Glucose Calcium Magnesium Iron TIBC % Saturation Ferritin Total Bilirubin AST ALT Alkaline Phosphatase Troponin I Total Protein Albumin Carcinoembryonic Ag Vitamin B12 Blood Type Blood Type Recheck Antibody Screen MTS Gel Crossmatch Bld Prod Order Comment Imaging Studies: Impressions Abdomen/Pelvis CT 06/02/18 00:00 CONCLUSION: 1. Large ill-defined low-attenuation mass in the region of the head of the pancreas of concern for pancreatic cancer. Appears to involve the posterior aspect of the distal stomach and there are multiple ill-defined gas collections in this region most characteristic of necrotic tumor. 2. Low-density thrombus in the proximal portal vein and mesenteric veins. 3. Multiple hepatic metastasis. 4. Multiple lung metastasis. Chest CT 06/02/18 00:00 CONCLUSION: 1. Multiple bilateral pulmonary metastasis. 2. Please see abdomen CT from this date for further details on the abdominal findings. Chest X-Ray 06/02/18 15:35 CONCLUSION: Multiple pulmonary nodules suggesting widespread metastatic disease. Medications: Active Medications Generic Name Dose Route Start Last Admin Trade Name Freq PRN Reason Stop Dose Admin Atorvastatin Calcium 40 mg 06/03/18 09:00 06/03/18 10:03 Lipitor PO 40 mg DAILY NERI Administration Insulin Aspart 0 unit 06/02/18 21:00 06/03/18 11:40 Novolog Insulin Correctional Sugar Inj SQ Not Given ACHS [facility] Protocol Insulin Detemir 15 unit 06/02/18 21:00 06/02/18 21:50 Levemir Inj SQ 15 unit HS NERI Administration Lisinopril 10 mg 06/03/18 09:00 06/03/18 10:03 Prinivil PO 10 mg DAILY NERI Administration Pantoprazole Sodium 40 mg 06/02/18 21:00 06/03/18 10:03 Protonix Inj IV.PUSH 40 mg BID NERI Administration Sodium Chloride 2 ml 06/02/18 21:00 06/03/18 10:04 Ns Flush IV.FLUSH 2 ml BID NERI Administration Tamsulosin HCl 0.4 mg 06/03/18 09:00 06/03/18 10:03 Flomax PO 0.4 mg DAILY NERI Administration Objective Remarks: GENERAL: Well-nourished, well-developed patient. SKIN: Warm and dry. HEAD: Normocephalic. Alopecia. EYES: No scleral icterus. No injection or drainage. NECK: Supple, trachea midline. No JVD or lymphadenopathy. LYMPHATIC: No adenopathy. CARDIOVASCULAR: Regular rate and rhythm without murmurs. RESPIRATORY: Breath sounds equal bilaterally. No accessory muscle use. GASTROINTESTINAL: Abdomen soft, non-tender, nondistended. EXTREMITIES: No cyanosis, or edema. MUSCULOSKELETAL: Adequate muscle tone. NEUROLOGICAL: No obvious focal deficit. Awake, alert, and oriented x3. PSYCHIATRIC: Appropriate mood and affect; insight and judgment normal. Assessment/Plan (1) Colon cancer metastasized to liver Code(s): C18.9 - Malignant neoplasm of colon, unspecified; C78.7 - Secondary malignant neoplasm of liver and intrahepatic bile duct Status: Acute (2) Colon cancer metastasized to lung Code(s): C18.9 - Malignant neoplasm of colon, unspecified; C78.00 - Secondary malignant neoplasm of unspecified lung Status: Acute - Plan 53-year-old man with history of hypertension, diabetes and multiple cancers. He has a history of colon cancer diagnosed in 2015 underwent definitive resection adjuvant chemotherapy and has been disease free. He has a history of prostate cancer definitively treated with radiation in 2017. He was admitted with symptomatic microcytic anemia consistent with iron deficiency from GI loss of iron and blood. Imaging study revealed "multiple pulmonary and liver nodules. Elevated CEA suspicious for metastatic or recurrent colon cancer. Pathology from his colon cancer is not available or the number of lymph nodes affected. Suspect that at least one lymph node was involved given his history of adjuvant chemotherapy. We discussed a CT-guided biopsy to evaluate further possibility of recurrence or metastatic colon cancer. The lung and liver lesions look like they are metastatic disease. In light of his multiple cancers a third primary could be considered. The elevated CEA suggests recurrence of a GI malignancy possibly colon. He anticipates being discharged and following up with the [facility] oncology program. Feels better after transfusion. He may also receive additional iron therapy through the [place]. GI consult pending endoscopy to rule out acute source of blood loss and iron. Follow-up with [facility] physicians upon discharge.
[2018-06-03] MEDS ORDERED: fentaNYL Citrate Inj 250 MCG/5 ML Ampul ONE (13:37)
--- NOTE | 2018-06-03 14:44 | P.RAD ---
Post CT Procedure Prog Note - Pre Procedure Diagnosis (1) Colon cancer metastasized to liver - Post Procedure Diagnosis (1) Colon cancer metastasized to liver - Procedure Information Procedure Date: 06/03/18 Supervising Radiologist: Jhonathan Baker Jr, MD Proceduralist/Assist: Dayna Estimated blood loss (mL): 0 Anesthesia: Conscious Sedation - Plan of Activity Patient to Unit: [facility] Patient condition: Good See PACS Report for procedural detail/treatment. Biopsy CT Liver Level: right hepatic mass bx in pt with multiple hepatic masses. Specimen: Core Biopsy Findings: 2 core samples of right hepatic lobe mass. Post CT images show no hemorrhage. Plan: To [facility].
--- NOTE | 2018-06-03 16:17 | CT ---
EXAM DATE: 06/03/2018 3:10 PM EST AGE/SEX: 53 years / Male INDICATIONS: Liver mass. CLINICAL DATA: This is the patient's initial encounter. Patient reports that signs and symptoms have been present for 1 day and indicates a pain score of 0/10. MEDICAL/SURGICAL HISTORY: Carcinoma, colon. None. COMPARISON: [facility], CT ABDOMEN & PELVIS W CONTRAST, 06/02/2018. . BIOPSY SITE: . liver MEDICATION(S): 4mg midazolam (Versed) IV 200mcg fentanyl (Sublimaze) IV DEVICE(S): 17 gauge Introducer 18 gauge BioPince needle Two core specimen(s) sent to the laboratory for pathologic evaluation. . . PROCEDURE: CT guided . liver biopsy I reviewed the patient's prior CT abdomen and pelvis June 02, 2018. A large bilobed right hepatic mass was targeted during the biopsy. Prior to the procedure informed consent was obtained. Any appr opriate prior imaging studies were reviewed. Using automated exposure control and adjustment of the mA and/or kV according to patient size, radiat ion dose was kept as low as reasonably achievable to obtain optimal diagnostic quality images. DICOM format image data is available electronically for review and comparison. The site was prepped in a sterile fashion. Full sterile technique was used, including cap, mask, amanda rile gloves and gown and a large sterile sheet. Hand hygiene and 2% chlorhexidine and/or betadine/al cohol prep was utilized per protocol for cutaneous antisepsis. The skin and subcutaneous tissues wer e infiltrated with local anesthetic solution. With CT guidance the previously identified target was localized. A right mid axillary line approach w as utilized. A 17-gauge coaxial needle was passed into the peripheral aspects of the right lobe of th e liver. Biopsy was performed using the prescribed needle as above. Adequate hemostasis was obtained with compression at the puncture site. Follow-up CT scan reveals no hemorrhage. The patient tolerated the procedure well and there were no complications. The patient was returned to the Radiology Outpatient Unit in stable condition. CONCLUSION: 1. Uncomplicated CT guided core biopsy of a right hepatic lobe mass. Electronically signed by: Jhonathan Baker MD 06/03/2018 4:16 PM EST
--- NOTE | 2018-06-03 16:24 | GIPROC ---
[facility] [address] [facility]. [facility], [address] EGD PROCEDURE REPORT EXAM DATE: 06/03/2018 PATIENT NAME: Thee Pruett MR #: [id number] BIRTHDATE: 1965 ATTENDING: Naima Mckenzie MD ORDER #: [id number] SECRETARY OFFICE CLERK: Susan Long RN STATUS: inpatient INDICATIONS: The patient is a 53 yr old male here for an EGD due to nausea and vomiting PROCEDURE PERFORMED: EGD w/ biopsy MEDICATIONS: Per Anesthesia and None. TOPICAL ANESTHETIC: none CONSENT: The patient understands the risks and benefits of the procedure and understands that these risks include, but are not limited to: sedation, allergic reaction, infection, perforation and/or bleeding. Alternative means of evaluation and treatment include, among others: physical exam, x-rays, and/or surgical intervention. The patient elects to proceed with this endoscopic procedure. medical equipment was checked for proper function. Hand hygiene and appropriate measures for infection prevention was taken. After the risks, benefits and alternatives of the procedure were thoroughly explained, Informed consent was verified, confirmed and timeout was successfully executed by the treatment team. The patient was anesthetized with topical anesthesia and the endoscope was introduced through the mouth and advanced to the first portion of the duodenum. Retroflexed views revealed Large amount of food. The gastroscope was then slowly withdrawn and removed. ESOPHAGUS: The mucosa of the esophagus appeared normal. STOMACH: There was a large amount of residual food seen in the entire examined stomach. Due to the residual food, complete mucosal examination could not be performed. DUODENUM: A one-third circumferential polypoid shaped and ulcerated mass was found in the duodenal bulb. Multiple biopsies were performed using cold forceps. Sample sent for histology. Food residue was found in the 2nd part of the duodenum. ADVERSE EVENTS: There were no complications. IMPRESSIONS: 1. The esophagus appeared normal 2. Food residue in the entire examined stomach 3. One-third circumferential mass was found in the duodenal bulb; multiple biopsies were performed 4. Food residue was found in the 2nd part of the duodenum 5. Retroflexed views revealed Large amount of food. RECOMMENDATIONS: 1. Await biopsy results. Biopsy results will not be ready for 7-10 days. If you don't hear from us in two weeks, call our office for biopsy results. 2. Liquid diet only PATIENT CONDITION: stable DISPOSITION: Observation REPEAT EXAM: NONE Naima Mckenzie MD eSigned: Naima Mckenzie MD 06/03/2018 4:24 PM cc: PATIENT NAME: Thee Pruett MR#: [id number]
[2018-06-03 16:38] VITALS: RESP 16; TEMP 97.4
[2018-06-03 16:40] VITALS: BP 110/63; PULSE 96; O2SAT 98
--- NOTE | 2018-06-03 16:53 | P.PNIM ---
Subjective Interval history: The patient was seen following his procedures. He denies any pain or nausea. He was looking forward to having dinner. He wanted to go home this evening. He said he would need a ride to the OR parking lot. He said that he will follow- up with the OR for further oncological management. Discussed with nursing, oncology and gastroenterology. Physical Exam Vital signs: Vital Signs 06/02/18 18:25 06/02/18 21:59 06/02/18 22:24 Temperature 99.4 F 99.9 F H 99.9 F H Pulse Rate 116 H 98 H 97 H Respiratory Rate 16 16 16 Blood Pressure 137/78 114/66 123/76 Pulse Oximetry 100 99 98 06/02/18 22:46 06/02/18 23:53 06/03/18 00:49 Temperature 98.4 F 99.8 F H Pulse Rate 92 H 89 87 Respiratory Rate 16 16 Blood Pressure 119/72 112/65 Pulse Oximetry 97 99 06/03/18 01:21 06/03/18 01:29 06/03/18 01:45 Temperature 98.7 F 98.7 F 99.0 F Pulse Rate 90 88 94 H Respiratory Rate 16 16 16 Blood Pressure 109/66 109/66 107/67 Pulse Oximetry 97 98 99 06/03/18 03:46 06/03/18 04:24 06/03/18 08:00 Temperature 99.1 F 99.2 F Pulse Rate 85 95 H 91 H Respiratory Rate 16 Blood Pressure 110/56 L 118/67 Pulse Oximetry 98 96 06/03/18 12:00 06/03/18 15:00 06/03/18 15:15 Temperature 98.5 F 98.9 F Pulse Rate 87 95 H 93 H Respiratory Rate 16 20 20 Blood Pressure 121/71 123/67 129/67 Pulse Oximetry 96 94 L 98 06/03/18 16:00 06/03/18 16:29 06/03/18 16:39 Temperature 97.4 F L Pulse Rate 95 H 99 H 96 H Respiratory Rate 16 16 Blood Pressure 105/59 L 110/63 Pulse Oximetry 99 98 Intake & Output 06/02/18 06/03/18 06/03/18 18:59 06:59 18:59 Intake Total 150 / 150 1055 / 1055 0 / 0 Output Total 300 / 300 Balance 150 / 150 755 / 755 0 / 0 Weight 99.79 kg Intake: IV NS Inj 250 ML @ 15 mls/hr IV. SIG ONCE NERI Rx#:[id number] Oral 240 / 240 0 / 0 Anesthesia Amount 150 / 150 Intake (Blood Product) Amt 800 / 800 Rbc As-3 Leukoreduced Unit 400 / 400 [id number] Rbc As-3 Leukoreduced Unit 400 / 400 [id number] Output: Urine 300 / 300 Other: Date of Last Bowel Movement 06/02/18 # Bowel Movements 0 Narrative: GENERAL: Well-nourished well-developed male in no acute distress. SKIN: Warm and dry. HEAD: Atraumatic. Normocephalic. EYES: Pupils equal and round. No scleral icterus. No injection or drainage. ENT: No nasal bleeding or discharge. Mucous membranes pink and moist. NECK: Trachea midline. No JVD. CARDIOVASCULAR: Regular rate and rhythm. RESPIRATORY: No accessory muscle use. Clear to auscultation. Breath sounds equal bilaterally. GASTROINTESTINAL: Abdomen soft, non-tender, nondistended. Hepatic and splenic margins not palpable. Previous surgical scar noted. MUSCULOSKELETAL: Extremities without clubbing, cyanosis, or edema. No obvious deformities. NEUROLOGICAL: Awake and alert to person place time situation. No obvious cranial nerve deficits. Motor grossly within normal limits. Five out of 5 muscle strength in the arms and legs. Normal speech. PSYCHIATRIC: Appropriate mood and affect; insight and judgment normal. Results - Labs CBC & Chem 7: 06/03/18 05:32 06/03/18 05:32 Laboratory Results - last 24 hr 06/02/18 06/02/18 06/02/18 15:45 15:45 15:45 WBC RBC Hgb Hct MCV MCH MCHC RDW Plt Count MPV Neut % (Auto) Lymph % (Auto) [place] % (Auto) Eos % (Auto) Baso % (Auto) Neut # (Auto) Lymph # (Auto) [place] # (Auto) Eos # (Auto) Baso # (Auto) WBC Differential . Diff Scan Auto diff confirmed Differential Comment Platelet Estimate Normal Platelet Morphology Normal Tear Drop Cells 1+ H Ovalocytes 1+ H Sodium Potassium Chloride Carbon Dioxide Anion Gap BUN Creatinine Estimated GFR POC Glucose Random Glucose Calcium Iron TIBC % Saturation Ferritin Carcinoembryonic Ag Vitamin B12 Antibody Screen Negative MTS Gel Crossmatch See Detail Bld Prod Order Comment 06/02/18 06/03/18 06/03/18 21:26 05:32 05:32 WBC 9.3 RBC 2.91 L Hgb 7.3 L Hct 22.3 L MCV 76.6 L MCH 25.0 L MCHC 32.7 RDW 18.0 H Plt Count 304 MPV 7.3 Neut % (Auto) 83.0 H Lymph % (Auto) 7.0 L [place] % (Auto) 9.1 H Eos % (Auto) 0.6 Baso % (Auto) 0.3 Neut # (Auto) 7.7 Lymph # (Auto) 0.6 L [place] # (Auto) 0.8 Eos # (Auto) 0.1 Baso # (Auto) 0.0 WBC Differential . Diff Scan Differential Comment Auto diff final Platelet Estimate Platelet Morphology Tear Drop Cells Ovalocytes Sodium Potassium Chloride Carbon Dioxide Anion Gap BUN Creatinine Estimated GFR POC Glucose 232 H Random Glucose Calcium Iron TIBC % Saturation Ferritin Carcinoembryonic Ag 11.4 H Vitamin B12 Antibody Screen MTS Gel Crossmatch Bld Prod Order Comment 06/03/18 06/03/18 06/03/18 05:32 07:47 11:26 WBC RBC Hgb Hct MCV MCH MCHC RDW Plt Count MPV Neut % (Auto) Lymph % (Auto) [place] % (Auto) Eos % (Auto) Baso % (Auto) Neut # (Auto) Lymph # (Auto) [place] # (Auto) Eos # (Auto) Baso # (Auto) WBC Differential Diff Scan Differential Comment Platelet Estimate Platelet Morphology Tear Drop Cells Ovalocytes Sodium 138 Potassium 3.3 L Chloride 106 Carbon Dioxide 23.4 Anion Gap 9 BUN 12 Creatinine 0.76 Estimated GFR Greater than 89 POC Glucose 93 98 Random Glucose 88 Calcium 8.4 L Iron 68 TIBC 182 L % Saturation 37.4 Ferritin 50 Carcinoembryonic Ag Vitamin B12 691 Antibody Screen MTS Gel Crossmatch Bld Prod Order Comment 06/03/18 15:56 WBC RBC Hgb Hct MCV MCH MCHC RDW Plt Count MPV Neut % (Auto) Lymph % (Auto) [place] % (Auto) Eos % (Auto) Baso % (Auto) Neut # (Auto) Lymph # (Auto) [place] # (Auto) Eos # (Auto) Baso # (Auto) WBC Differential Diff Scan Differential Comment Platelet Estimate Platelet Morphology Tear Drop Cells Ovalocytes Sodium Potassium Chloride Carbon Dioxide Anion Gap BUN Creatinine Estimated GFR POC Glucose 85 Random Glucose Calcium Iron TIBC % Saturation Ferritin Carcinoembryonic Ag Vitamin B12 Antibody Screen MTS Gel Crossmatch Bld Prod Order Comment - Imaging Impressions Abdomen/Pelvis CT 06/02/18 00:00 CONCLUSION: 1. Large ill-defined low-attenuation mass in the region of the head of the pancreas of concern for pancreatic cancer. Appears to involve the posterior aspect of the distal stomach and there are multiple ill-defined gas collections in this region most characteristic of necrotic tumor. 2. Low-density thrombus in the proximal portal vein and mesenteric veins. 3. Multiple hepatic metastasis. 4. Multiple lung metastasis. Chest CT 06/02/18 00:00 CONCLUSION: 1. Multiple bilateral pulmonary metastasis. 2. Please see abdomen CT from this date for further details on the abdominal findings. Liver Biopsy CT 06/03/18 08:00 CONCLUSION: 1. Uncomplicated CT guided core biopsy of a right hepatic lobe mass. Assessment and Plan - Plan 53-year-old male presents with 3-week history of progressive shortness of breath and fatigue Acute anemia Transfused 2 units of PRBC. We continued a PPI. GI was consulted. S/p EGD which revealed a duodenal mass as well as retained food in the stomach. Patient does have a history of previous colon cancer, recent colostomy in November of this year showed polyps. -follow pathology. -clear liquid diet recommended by GI. [facility] Multiple pulmonary nodules with high suspicion for metastatic disease CT abdomen: Large ill-defined low-attenuation mass in the region of the head of the pancreas of concern for pancreatic cancer; Appears to involve the posterior aspect of the distal stomach and there are multiple ill-defined gas collections in this region most characteristic of necrotic tumor; Low-density thrombus in the proximal portal vein and mesenteric veins; multiple hepatic metastasis; Multiple lung metastasis. CEA level was elevated. Oncology was consulted. S/p liver biopsy by IR. -follow pathology. -[facility]. Diabetes mellitus type 2, insulin-dependent -resume home regimen. DVT prophylaxisanticoagulation on hold due to risk of GI bleed Discharge Planning: Will need [facility] including [facility] and follow-up on pathology
[2018-06-03] MEDS ORDERED: Potassium Chloride 25 MEQ Effervescent Tablet PO ONE (17:02)
== END 2018-06-03 19:15 | disposition home or self-care (01) ==
LOC: NEPC 14:51 → NEDA 16:52 → N04 18:25
PROVIDERS: ADMIT Hospitalist; ATTEND Hospitalist